=== PATIENT | male | born 1995 | race Two or more races ===

== ENCOUNTER 2019-09-19 22:57 | Emergency (ER) | payer SELFPAY ==
[~2019-09-19] VITALS: Ht 170.2 cm; Wt 95.3 kg
[2019-09-19 23:01] VITALS: BP 134/88
== END 2019-09-20 00:43 | disposition home or self-care (01) ==
LOC: ED 23:00
DX: M25.512 Pain in left shoulder (principal)
CPT/HCPCS: 99283